=== PATIENT | female | born 1930 | race Caucasian/White ===

== ENCOUNTER 2016-12-11 14:14 | Emergency (ER) | payer MEDICARE ==
[~2016-12-11] VITALS: Ht 152.4 cm; Wt 78.5 kg
[~2016-12-11 14:14] MED LIST: ASPIR-TRIN325 MG PO; ATOXIMETIN-B1 CAP PO; B12,B-12,B 12500 MC1 SC; B6-5050 MG PO; CALCIUM 600600 MG PO; COREG12.5 M1 PO; FERROUS SULF15 MG/ML PO; HYDROCODONE BIT1 T11 PO; HYZAAR 12.5 MG-1 TAB PO; KEFLEX500 MG PO; KEY-E400 IU PO; LASIX40 MG PO; METFORMIN1000 MG PO; NAPROSYN500 MG PO; POTASSIUM GLUC550 M1 PO; PRADAXA150 MG PO; PRINIVIL5 M1 PO; Synthroid,Levo50 MCG PO; VITAMIN C500 MG PO; VITAMIN D31000 I1 PO
[2016-12-11 14:20] VITALS: BP 144/74
[2016-12-11] MEDS ORDERED: METFORMIN500 MG PO (14:24)
[2016-12-11] MEDS ORDERED: K-TAB10 MEQ PO (14:26)
== END 2016-12-11 15:51 | disposition home or self-care (01) ==
LOC: ED 14:14
DX: S43.401A Unspecified sprain of right shoulder joint, initial encounter (principal); S40.021A Contusion of right upper arm, initial encounter; Z79.899 Other long term (current) drug therapy; X58.XXXA Exposure to other specified factors, initial encounter; Y93.89 Activity, other specified; Y92.89 Other specified places as the place of occurrence of the external cause; Y99.8 Other external cause status

== ENCOUNTER → 2017-11-07 | Outpatient (CLI) | payer MEDICARE ==
[~2017-11-07] MED LIST changes: +K-TAB10 MEQ PO; +METFORMIN500 MG PO
== END | disposition home or self-care (01) ==
LOC: CT 11-01 01:48
DX: K57.90 Diverticulosis of intestine, part unspecified, without perforation or abscess without bleeding (principal); N28.1 Cyst of kidney, acquired; K86.89 Other specified diseases of pancreas; K56.699 Other intestinal obstruction unspecified as to partial versus complete obstruction

== ENCOUNTER → 2018-08-21 | Outpatient (CLI) | payer MEDICARE ==
[2018-08-21 13:10] LABS: BASO % 0.3 % (0.0-1.0); EOS # 0.1 10*3/uL (0.0-0.4); EOS % 1.7 % (1.0-4.0); HEMATOCRIT 30.8 % (37.0-47.0); HEMOGLOBIN 9.2 g/dl (12.0-16.0); LYMPH # 1.1 10*3/uL (1.3-4.4); LYMPH % 16.4 % (27.0-41.0); MEAN CELL VOLUME 96.9 fl (81.0-99.0); MEAN CORPUSCULAR HGB 28.9 pg (27.0-31.0); MEAN CORPUSCULAR HGB CONC 29.9 g/dl (33.0-37.0); MEAN PLATELET VOLUME 9.3 fl (9.6-12.3); MONO # 0.7 10*3/uL (0.1-1.0); MONO % 9.6 % (3.0-9.0); NEUT % 71.9 % (47.0-73.0); PLATELET COUNT AUTOMATED 160 10*3/uL (130-400); RED BLOOD COUNT 3.18 10*6/uL (4.10-5.10)
[2018-08-21 13:40] LABS: ALBUMIN 3.4 gm/dl (3.1-4.5); BILIRUBIN, DIRECT 0.2 mg/dL (0.0-0.2); CREATININE 1.24 mg/dL (0.55-1.02); POTASSIUM 4.1 mmol/L (3.5-5.1); TOTAL PROTEIN 7.1 gm/dL (6.4-8.2)
== END | disposition home or self-care (01) ==
LOC: LAB 12:46
PROVIDERS: Internal Medicine
DX: E11.22 Type 2 diabetes mellitus with diabetic chronic kidney disease (principal); N18.3 Chronic kidney disease, stage 3 (moderate); I25.10 Atherosclerotic heart disease of native coronary artery without angina pectoris; I48.0 Paroxysmal atrial fibrillation; D63.1 Anemia in chronic kidney disease